=== PATIENT | male | born 1975 | race Caucasian/White ===

== ENCOUNTER 2017-10-10 13:38 | Emergency (ER) | payer MEDICARE, MEDICAID ==
[~2017-10-10] VITALS: Ht 165.1 cm; Wt 109.5 kg
[2017-10-10 14:14] VITALS: Ht 165.1 cm; Wt 109.5 kg
[2017-10-10] MEDS ORDERED: LEVEMIR100 U/M1 SC (14:17)
[2017-10-10] MEDS ORDERED: ACTOS30 MG PO (14:18)
[2017-10-10] MEDS ORDERED: ACCUPRIL10 MG PO (14:18)
[2017-10-10] MEDS ORDERED: CELEXA40 MG PO (14:18)
[2017-10-10] MEDS ORDERED: CRESTOR20 MG PO (14:19)
[2017-10-10] MEDS ORDERED: METOPROLOL TART25 MG PO (14:19)
[2017-10-10 15:43] LABS: BASOPHILS 0.4 % (0-2); EOSINOPHILS 2.5 % (0-7); HEMATOCRIT 45.1 % (42.0-54.0); HEMOGLOBIN 15.4 g/dL (13.5-17.5); IMMATURE GRANULOCYTES 0.2 % (0-5); LYMPHOCYTES 23.2 % (15-50); MCH 29.6 pg (26.0-34.0); MCHC 34.1 g/dL (31.0-37.0); MCV 86.6 fL (80.0-100.0); MEAN PLATELET VOLUME 10.2 fL (7.4-10.4); MONOCYTES 12.1 % (2-11); NEUTROPHILS 61.6 % (40-80); PLATELET COUNT 224 10x3/uL (130-400); RBC 5.21 10x6/uL (4.20-6.10); RDW 12.6 % (11.5-14.5); WBC 5.7 10x3/uL (4.8-10.8)
[2017-10-10 15:54] LABS: APPEARANCE CLEAR (CLEAR); BILIRUBIN NEGATIVE (NEGATIVE); COLOR YELLOW (YELLOW); GLUCOSE 500 mg/dL (NEGATIVE); KETONE NEGATIVE (NEGATIVE); NITRITE NEGATIVE (NEGATIVE); PROTEIN NEGATIVE (NEGATIVE); SPECIFIC GRAVITY 1.015 (1.005-1.020); UROBILINOGEN NORMAL (NORMAL)
[2017-10-10 15:58] LABS: ALBUMIN 3.5 g/dL (3.4-5.0); ALKALINE PHOSPHATASE 45 U/L (46-116); ALT (SGPT) 26 U/L (10-68); AMYLASE - SERUM 145 U/L (25-115); CALC OSMOLALITY 278 mosm/kg (275-300); CALCIUM 8.5 mg/dL (8.5-10.1); CARBON DIOXIDE 30.5 mmol/L (21.0-32.0); CHLORIDE - SERUM 100 mmol/L (98-107); CREATININE - SERUM 0.9 mg/dL (0.6-1.3); LIPASE 148 U/L (73-393); POTASSIUM - SERUM 4.4 mmol/L (3.5-5.1); PROTEIN - SERUM 6.9 g/dL (6.4-8.2); SODIUM 136 mmol/L (136-145); UREA NITROGEN 11 mg/dL (7-18); eGFR NON AFRICAN AMERICAN > 90 mL/min (90-120)
[2017-10-10 15:59] LABS: GLUCOSE 244 mg/dL (74-106)
[2017-10-10] MEDS ORDERED: TORADOL10 MG PO (20:17)
[2017-10-10 20:29] VITALS: BP 134/86
== END 2017-10-10 20:31 | disposition home or self-care (01) ==
LOC: D.ER 13:38
PROVIDERS: Emergency Medicine
DX: D17.5 Benign lipomatous neoplasm of intra-abdominal organs (principal); E11.9 Type 2 diabetes mellitus without complications; I10 Essential (primary) hypertension

== ENCOUNTER 2018-04-01 11:17 | Emergency (ER) | payer MEDICARE, MEDICAID ==
[~2018-04-01] VITALS: Ht 165.1 cm; Wt 109.5 kg
[~2018-04-01 11:17] MED LIST: ACCUPRIL10 MG PO; ACTOS30 MG PO; CELEXA40 MG PO; CRESTOR20 MG PO; LEVEMIR100 U/M1 SC; METOPROLOL TART25 MG PO; TORADOL10 MG PO
[2018-04-01 11:41] VITALS: Ht 165.1 cm; Wt 109.5 kg
[2018-04-01] MEDS ORDERED: ARTHROTEC 501 TAB.EC PO (14:25)
[2018-04-01 15:12] VITALS: BP 132/87
== END 2018-04-01 15:14 | disposition home or self-care (01) ==
LOC: D.ER 11:17
DX: M25.562 Pain in left knee (principal); S83.92XA Sprain of unspecified site of left knee, initial encounter; X58.XXXA Exposure to other specified factors, initial encounter; Y93.89 Activity, other specified; Y92.019 Unspecified place in single-family (private) house as the place of occurrence of the external cause; E11.9 Type 2 diabetes mellitus without complications; I10 Essential (primary) hypertension; F17.200 Nicotine dependence, unspecified, uncomplicated